=== PATIENT | female | born 1980 | race Caucasian/White ===

== ENCOUNTER 2016-09-14 09:40 | Day surgery (SDC) | payer OTHER ==
[~2016-09-14] VITALS: Ht 167.6 cm; Wt 130.0 kg
[~2016-09-14 09:40] MED LIST: ALBUTEROL17 GM IH; ENDOCET 5-3251 EACH PO; FLEXERIL10 MG PO; HYDROCODON-ACE1 EAC7 PO; KEFLEX500 MG PO; LOMOTIL TABLET1 EACH PO; MECLIZINE HCL25 MG PO; MIRENA52 MG IY; MOTRIN800 MG PO; Motrin PO; NAPROSYN500 MG PO; NO MEDS; NOHOMEMEDS; NUVARING VAGIN1 EACH PO; PREDNISONE; PRENATAL 1 PLU1 EACH PO; PRENATAL VITAM1 EAC1 PO; PRENATAL1 EACH PO; PRILOSEC40 MG PO; PROMETHAZINE HC25 M1 PO; Percocet 5/325,Endoc PO; TORADOL10 MG PO; TRAMADOL HCL50 MG PO; TYLENOL325 M1 PO; ULTRAM50 MG PO; VALIUM5 MG PO; VICODIN,LORT1 TABLET PO; VITAMIN B12 100MCG PO; ZANTAC150 MG PO; ZOFRAN4 MG PO; [UNRECOGNIZED DRUG - OTHER]
[2016-09-14 09:54] VITALS: BP 126/74
[2016-09-14] MEDS ORDERED: IBUPROFEN800 MG PO (13:05)
[2016-09-14] MEDS ORDERED: ENDOCET 5-3251 EACH PO (13:05)
[2016-09-14 14:04] VITALS: BP 128/80
[2016-09-14 15:05] VITALS: BP 146/79
== END 2016-09-14 15:50 | disposition home or self-care (01) ==
LOC: SDC
DX: Z30.2 Encounter for sterilization (principal); Z30.432 Encounter for removal of intrauterine contraceptive device; K21.9 Gastro-esophageal reflux disease without esophagitis; E66.01 Morbid (severe) obesity due to excess calories; Z68.43 Body mass index [BMI] 50.0-59.9, adult; Z87.891 Personal history of nicotine dependence; Z83.3 Family history of diabetes mellitus; Z82.5 Family history of asthma and other chronic lower respiratory diseases; Z88.1 Allergy status to other antibiotic agents
CPT/HCPCS: J1170; J1885; J2250; J2405; J2710; J3010

== ENCOUNTER 2016-11-20 14:28 | Emergency (ER) | payer OTHER ==
[~2016-11-20] VITALS: Ht 167.6 cm; Wt 134.9 kg
[~2016-11-20 14:28] MED LIST changes: +IBUPROFEN800 MG PO
[2016-11-20 15:13] LABS: HEMATOCRIT 39.1 % (36.0-46.0); MCH 30.7 PG (29.0-34.0); MCHC 33.8 G/DL (30.0-36.0); MCV 90.9 FL (83-99); MEAN PLAT.VOLUME 10.5 uM^3 (9.5-12.4); PLATELET COUNT 338 K/uL (156-360); WHITE BLOOD COUNT 9.3 K/uL (4.1-10.2)
[2016-11-20 15:25] LABS: CHLORIDE 108 mEq/L (99-109); POTASSIUM 3.6 mEq/L (3.7-5.4); SODIUM 139 mEq/L (136-147)
[2016-11-20 15:27] LABS: GLUCOSE 134 mg/dL (70-99)
[2016-11-20 15:28] LABS: ANION GAP 10 MEQ/L (2-14)
[2016-11-20 15:29] LABS: TOTAL BILIRUBIN 0.3 mg/dL (0.0-1.0)
[2016-11-20 15:30] LABS: ALKALINE PHOSPHATASE 75 IU/L (3-129)
[2016-11-20 15:31] LABS: GFR ESTIMATE (CALCULATED) 55 mL/min/
[2016-11-20 15:32] LABS: UREA NITROGEN (BUN) 14 mg/dL (9-23)
[2016-11-20 15:34] LABS: TROP-I INTERPRETATION NEGATIVE; TROPONIN-I < 0.01 ng/mL (0.0-0.30)
[2016-11-20 15:40] LABS: QUANTITATIVE HCG < 4.0 MIU/ML
[2016-11-20 17:43] LABS: TROP-I INTERPRETATION NEGATIVE; TROPONIN-I < 0.01 ng/mL (0.0-0.30)
[2016-11-20] MEDS ORDERED: LITE COAT ASPI325 M1 PO (18:34)
[2016-11-20 18:51] VITALS: BP 118/90
== END 2016-11-20 18:52 | disposition home or self-care (01) ==
LOC: EME 14:28
PROVIDERS: Physician Assistant
DX: R07.81 Pleurodynia (principal); Z87.891 Personal history of nicotine dependence
CPT/HCPCS: 71020; 80053; 84484; 84702; 85027; 93005; 99281; 99285

== ENCOUNTER 2016-12-06 10:32 | Emergency (ER) | payer OTHER ==
[~2016-12-06] VITALS: Ht 167.6 cm; Wt 138.0 kg
[~2016-12-06 10:32] MED LIST changes: +LITE COAT ASPI325 M1 PO
[2016-12-06] MEDS ORDERED: SKELAXIN800 MG PO (11:24)
[2016-12-06] MEDS ORDERED: NAPROSYN500 MG PO (11:24)
[2016-12-06] MEDS ORDERED: TRAMADOL HCL50 MG PO (11:24)
[2016-12-06 11:36] VITALS: BP 136/99
== END 2016-12-06 11:36 | disposition home or self-care (01) ==
LOC: EME 10:32
DX: S29.012A Strain of muscle and tendon of back wall of thorax, initial encounter (principal)
CPT/HCPCS: 99281; 99283; J1885

== ENCOUNTER 2016-12-24 18:44 | Emergency (ER) | payer OTHER ==
[~2016-12-24] VITALS: Ht 167.6 cm; Wt 139.2 kg
[~2016-12-24 18:44] MED LIST changes: +SKELAXIN800 MG PO
[2016-12-24 19:16] LABS: HEMATOCRIT 39.9 % (36.0-46.0); MCH 31.1 PG (29.0-34.0); MCHC 33.8 G/DL (30.0-36.0); MCV 91.9 FL (83-99); MEAN PLAT.VOLUME 10.4 uM^3 (9.5-12.4); PLATELET COUNT 321 K/uL (156-360); RBC DIS.WIDTH-CV 12.7 % (11.8-14.6); RBC DIS.WIDTH-SD 42.6 % (39-53); RED BLOOD COUNT 4.34 M/uL (3.80-5.20); WHITE BLOOD COUNT 9.2 K/uL (4.1-10.2)
[2016-12-24 19:25] LABS: CHLORIDE 109 mEq/L (99-109); SODIUM 139 mEq/L (136-147)
[2016-12-24 19:27] LABS: GLUCOSE 114 mg/dL (70-99)
[2016-12-24 19:29] LABS: ANION GAP 8 MEQ/L (2-14); TOTAL BILIRUBIN 0.2 mg/dL (0.0-1.0)
[2016-12-24 19:31] LABS: ALKALINE PHOSPHATASE 90 IU/L (3-129); GFR ESTIMATE (CALCULATED) > 59 mL/min/
[2016-12-24 19:32] LABS: UREA NITROGEN (BUN) 10 mg/dL (9-23)
[2016-12-24 19:40] LABS: QUANTITATIVE HCG < 4.0 MIU/ML
[2016-12-24 19:43] LABS: ADD MIUA? NO; BILIRUBIN NEGATIVE; BLOOD NEGATIVE; COLOR STRAW ((YELLOW)); GLUCOSE (STRIP) NEGATIVE; KETONES NEGATIVE; LEUKOCYTES NEGATIVE; NITRITE NEGATIVE; PROTEIN (STRIP) NEGATIVE; UCUL ADDED? NO; UROBILINOGEN 0.2 MG/DL (0.2-1.0)
[2016-12-24 20:19] LABS: LIPASE 29 U/L (1.0-51.0)
[2016-12-24] MEDS ORDERED: KEFLEX250 MG/5 M PO (23:46)
[2016-12-24] MEDS ORDERED: ZOFRAN4 MG PO (23:50)
[2016-12-25 00:05] VITALS: BP 114/77
== END 2016-12-25 00:11 | disposition home or self-care (01) ==
LOC: EME 18:44
DX: N83.201 Unspecified ovarian cyst, right side (principal); R11.0 Nausea; R68.83 Chills (without fever); R19.7 Diarrhea, unspecified; R14.0 Abdominal distension (gaseous); R35.0 Frequency of micturition; Z90.49 Acquired absence of other specified parts of digestive tract
CPT/HCPCS: 74177; 76856; 80053; 81003; 83690; 84702; 85027; 99281; 99285; J1885; J2270; J2405; J7030

== ENCOUNTER 2017-02-03 17:33 | Emergency (ER) | payer OTHER ==
[~2017-02-03] VITALS: Ht 167.6 cm; Wt 137.7 kg
[~2017-02-03 17:33] MED LIST changes: +KEFLEX250 MG/5 M PO
[2017-02-03 20:16] VITALS: BP 138/102
== END 2017-02-03 20:23 | disposition home or self-care (01) ==
LOC: EME 17:33
DX: R51 Headache (principal)
CPT/HCPCS: 99281; 99284; J1885

== ENCOUNTER 2017-07-19 12:47 | Emergency (ER) | payer OTHER ==
[~2017-07-19] VITALS: Ht 167.6 cm; Wt 138.0 kg
[2017-07-19 13:20] VITALS: BP 129/78
== END 2017-07-19 15:20 | disposition left against medical advice (07) ==
LOC: EME 12:47
DX: M25.551 Pain in right hip (principal); Z53.21 Procedure and treatment not carried out due to patient leaving prior to being seen by health care provider

== ENCOUNTER 2017-11-03 09:49 | Emergency (ER) | payer OTHER ==
[~2017-11-03] VITALS: Ht 167.6 cm; Wt 144.6 kg
[2017-11-03 10:05] VITALS: BP 157/110
== END 2017-11-03 15:59 | disposition left against medical advice (07) ==
LOC: EME 09:49
DX: M25.551 Pain in right hip (principal); Z53.21 Procedure and treatment not carried out due to patient leaving prior to being seen by health care provider

== ENCOUNTER 2017-12-23 16:40 | Emergency (ER) | payer OTHER ==
[~2017-12-23] VITALS: Ht 167.6 cm; Wt 147.6 kg
[2017-12-23 17:27] LABS: HEMATOCRIT 38.6 % (36.0-46.0); HEMOGLOBIN 13.1 G/DL (11.9-15.5); MCH 31.4 PG (29.0-34.0); MCHC 33.9 G/DL (30.0-36.0); MCV 92.6 FL (83-99); PLATELET COUNT 300 K/uL (156-360); RBC DIS.WIDTH-CV 13.5 % (11.8-14.6); RBC DIS.WIDTH-SD 46.2 % (39-53); RED BLOOD COUNT 4.17 M/uL (3.80-5.20); WHITE BLOOD COUNT 8.8 K/uL (4.1-10.2)
[2017-12-23 17:40] LABS: ALBUMIN 3.8 g/dL (3.2-4.8)
[2017-12-23 17:41] LABS: CHLORIDE 110 mEq/L (99-109); POTASSIUM 4.1 mEq/L (3.7-5.4); SODIUM 142 mEq/L (136-147)
[2017-12-23 17:43] LABS: GLUCOSE 95 mg/dL (70-99)
[2017-12-23 17:45] LABS: TOTAL BILIRUBIN 0.2 mg/dL (0.0-1.0)
[2017-12-23 17:45] LABS: APPEARANCE SL.HAZY ((CLEAR)); BILIRUBIN NEGATIVE; BLOOD SMALL; COLOR YELLOW ((YELLOW)); GLUCOSE (STRIP) NEGATIVE; KETONES NEGATIVE; LEUKOCYTES NEGATIVE; NITRITE NEGATIVE; PROTEIN (STRIP) NEGATIVE; SPECIFIC GRAVITY 1.023 (1.000-1.030); UROBILINOGEN 0.2 MG/DL (0.2-1.0)
[2017-12-23 17:46] LABS: ALKALINE PHOSPHATASE 81 IU/L (3-129)
[2017-12-23 17:47] LABS: CREATININE 0.8 mg/dL (0.6-1.3); GFR ESTIMATE (CALCULATED) > 59 mL/min/
[2017-12-23 17:48] LABS: AST (GOT) 21 IU/L (2-34); TROP-I INTERPRETATION NEGATIVE; TROPONIN-I < 0.01 ng/mL (0.0-0.30); UREA NITROGEN (BUN) 11 mg/dL (9-23)
[2017-12-23 17:49] LABS: ALT (GPT) 27 IU/L (3-49)
[2017-12-23 17:49] LABS: BACTERIA RARE /HPF; EPITHELIAL CELLS 1+ /HPF; MUCUS TRACE /LPF; RED BLOOD CELLS 0-5 /HPF (0-5); UCUL ADDED? NO; WHITE BLOOD CELLS 0-5 /HPF (0-5)
[2017-12-23 17:50] LABS: LIPASE 19 U/L (1.0-51.0)
[2017-12-23] MEDS ORDERED: NORCO 5/3251 TABLET PO (19:40)
[2017-12-23] MEDS ORDERED: NAPROXEN500 MG PO (19:40)
[2017-12-23 19:49] VITALS: BP 138/89
== END 2017-12-23 19:49 | disposition home or self-care (01) ==
LOC: EME 16:40
PROVIDERS: Physician Assistant
DX: S46.911A Strain of unspecified muscle, fascia and tendon at shoulder and upper arm level, right arm, initial encounter (principal); N83.201 Unspecified ovarian cyst, right side; X50.9XXA Other and unspecified overexertion or strenuous movements or postures, initial encounter; Z90.49 Acquired absence of other specified parts of digestive tract
CPT/HCPCS: 71046; 76856; 80053; 81003; 81025; 83690; 84484; 85027; 93005; 99281; 99284; J1885

== ENCOUNTER 2018-01-05 10:01 | Day surgery (SDC) | payer OTHER ==
[~2018-01-05] VITALS: Ht 165.1 cm; Wt 145.9 kg
[~2018-01-05 10:01] MED LIST changes: +CYANOCOBALAM1000 MCG PO; +MIRENA1 EACH IY; +NAPROXEN500 MG PO; +NORCO 5/3251 TABLET PO
[2018-01-05 10:40] VITALS: BP 130/79
[2018-01-05] MEDS ORDERED: IBUPROFEN800 MG PO (15:20)
[2018-01-05] MEDS ORDERED: ENDOCET 5-3251 EACH PO (15:20)
[2018-01-05] MEDS ORDERED: CLOTRIMAZOLE AF15 G2 TP (15:46)
[2018-01-05] MEDS ORDERED: BACTRIM,SEPT1 TABLET PO (15:46)
[2018-01-05 16:52] VITALS: BP 139/83
[2018-01-05 17:21] VITALS: BP 126/70
== END 2018-01-05 17:31 | disposition home or self-care (01) ==
LOC: SDC
PROC: 0UB04ZX Excision of Right Ovary, Percutaneous Endoscopic Approach, Diagnostic (ICD-10-PCS; principal; 2018-01-05)
DX: D27.0 Benign neoplasm of right ovary (principal); Z98.51 Tubal ligation status; Z97.5 Presence of (intrauterine) contraceptive device; K57.30 Diverticulosis of large intestine without perforation or abscess without bleeding; K21.9 Gastro-esophageal reflux disease without esophagitis; N92.0 Excessive and frequent menstruation with regular cycle; E66.01 Morbid (severe) obesity due to excess calories; Z68.43 Body mass index [BMI] 50.0-59.9, adult; Z90.49 Acquired absence of other specified parts of digestive tract; Z82.5 Family history of asthma and other chronic lower respiratory diseases; Z83.3 Family history of diabetes mellitus
CPT/HCPCS: 88160; 88305; J0131; J0330; J1100; J1170; J1885; J2250; J2405; J2710; J3010; J7643; S0020

== ENCOUNTER 2018-02-27 17:53 | Emergency (ER) | payer OTHER ==
[~2018-02-27] VITALS: Ht 167.6 cm; Wt 144.9 kg
[~2018-02-27 17:53] MED LIST changes: +BACTRIM,SEPT1 TABLET PO; +CLOTRIMAZOLE AF15 G2 TP
[2018-02-27] MEDS ORDERED: BACTRIM,SEPT1 TABLET PO (20:18)
[2018-02-27 20:39] VITALS: BP 158/96
== END 2018-02-27 20:40 | disposition home or self-care (01) ==
LOC: EME 17:53
PROC: 0H97XZZ Drainage of Abdomen Skin, External Approach (ICD-10-PCS; principal; 2018-02-27)
DX: L02.211 Cutaneous abscess of abdominal wall (principal); Z90.49 Acquired absence of other specified parts of digestive tract; Z87.891 Personal history of nicotine dependence
CPT/HCPCS: 99281; 99283